=== PATIENT | female | born 1940 | race Caucasian/White ===

== ENCOUNTER → 2023-08-08 08:15 | Outpatient (REF) | payer OTHER, SELFPAY | LOC: RCS 08:15 | PROVIDERS: ATTENDING PHYSICIAN Physician Assistant Medical | DX: R42 Dizziness and giddiness (principal); R07.89 Other chest pain; R06.02 Shortness of breath; I10 Essential (primary) hypertension; E78.1 Pure hyperglyceridemia; Z13.820 Encounter for screening for osteoporosis | CPT/HCPCS: 93017; 77080; 93350 ==

== ENCOUNTER → 2024-05-17 10:20 | Outpatient (REF) | payer OTHER, SELFPAY | LOC: HWRAD 10:20 | PROVIDERS: ATTENDING PHYSICIAN Physician Assistant Medical | DX: M79.605 Pain in left leg (principal) | CPT/HCPCS: 73590 ==